=== PATIENT | female | born 1950 | race Caucasian/White ===

== ENCOUNTER 2019-09-05 10:46 | Emergency (ER) | payer MEDICARE, BC ==
--- NOTE | 2019-09-05 11:37 | EDM.PDOC ---
ED HPI GENERAL MEDICAL PROBLEM - General Chief Complaint: Lower Extremity Injury/Pain Stated Complaint: RT LEG PAIN Time Seen by Provider: 09/05/19 11:03 Source of Information: Reports: Patient, RN Notes Reviewed History Limitations: Reports: No Limitations - History of Present Illness INITIAL COMMENTS - FREE TEXT/NARRATIVE: Patient is a 69-year-old female who presents to the ED for the evaluation of right leg pain status post hip surgery. Patient notes that she had a total right hip revision arthroplasty with some cadaver bones done on 08/21/2019, performed by Dr. Vanegas at [facility] in [place]. She has been doing physical therapy, started on 08/26/2019, she went once the first week, and twice this week. She is noting a pain to her right lateral/anterior thigh/knee, that really only bothers her at night, she states this is when the pain gets very bad. Patient does take her tramadol and Tylenol as needed, and tries to elevate her legs as much as possible. Patient is quite concerned about a blood clot at this time, she states that she only takes 2 tablets of 81 mg aspirin daily. She is not having any calf pain, and her leg does not demonstrate any other sort of redness or swelling. She is noting just the pain. The patient's incision is healing well, with no obvious signs of infection noted. She is not having any numbness or tingling distal to the pain, or in her toes. She notes that she is walking okay but cannot put more than 50 pounds weight on that leg. She denies any slips trips or near falls that have happened, or any other trauma after the surgery. She notes she has been very careful in her movements. Right Leg Pain Score (Numeric/FACES): 8 - Related Data Allergies Allergy/AdvReac Type Severity Reaction Status Date / Time niacin Allergy Rash Verified 09/05/19 11:25 nickel Allergy Rash Verified 09/05/19 11:25 oxycodone Allergy Hyperactivi Verified 09/05/19 11:25 ty Sulfa (Sulfonamide Allergy Nausea and Verified 09/05/19 11:25 Antibiotics) Vomiting Home Meds: Home Meds Acetaminophen [Tylenol Extra Strength] 500 mg PO DAILY PRN 09/05/19 [History] Aspirin [Ecotrin EC] 162 mg PO DAILY 09/05/19 [History] Meloxicam 7.5 mg PO DAILY 09/05/19 [History] atorvaSTATin [Lipitor] 20 mg PO DAILY 09/05/19 [History] traMADol [Ultram] 50 mg PO PRN 09/05/19 [History] Past Medical History HEENT History: Reports: Impaired Vision Other HEENT History: glasses Cardiovascular History: Reports: High Cholesterol - Past Surgical History GI Surgical History: Reports: Appendectomy Female Surgical History: Reports: Hysterectomy Musculoskeletal Surgical History: Reports: Hip Replacement Other Musculoskeletal Surgeries/Procedures:: ruptured disc on neck surgery, Bilateral hip replacement. Social & Family History - Tobacco Use Smoking Status *Q: Never Smoker - Caffeine Use Caffeine Use: Reports: Coffee - Recreational Drug Use Recreational Drug Use: No Review of Systems - Review of Systems Review Of Systems: See Below Constitutional: Denies: Chills, Fever Respiratory: Denies: Shortness of Breath, Cough Cardiovascular: Denies: Chest Pain Skin: Reports: Wound (Well-healing surgical wound to the right lateral hip). Denies: Erythema Neurological: Denies: Numbness, Tingling ED EXAM, GENERAL - Physical Exam Exam: See Below Exam Limited By: No Limitations General Appearance: Alert, WD/WN, No Apparent Distress Eye Exam: Bilateral Eye: EOMI, Normal Inspection, PERRL Ears: Normal External Exam Nose: Normal Inspection Throat/Mouth: Normal Inspection Head: Atraumatic, Normocephalic Neck: Normal Inspection Respiratory/Chest: No Respiratory Distress, Lungs Clear, Normal Breath Sounds, No Accessory Muscle Use, Chest Non-Tender Cardiovascular: Normal Peripheral Pulses, Regular Rate, Rhythm, No Edema, No Murmur Peripheral Pulses: 3+: Radial (L), Radial (R), Dorsalis Pedis (L), Dorsalis Pedis (R) GI/Abdominal: Normal Bowel Sounds, Soft, Non-Tender, No Distention, No Mass Extremities: Normal Inspection, Normal Capillary Refill, Leg Pain (Right anterior/lateral thigh, with movement but not on palpation), Limited Range of Motion (of right leg, Straight leg raise is positive at about 30). No: Joint Swelling, Increased Warmth, Pallor, Redness Neurological: Alert, Oriented, Normal Cognition, No Motor/Sensory Deficits Psychiatric: Normal Affect, Normal Mood Skin Exam: Warm, Dry, Intact, Normal Color, No Rash, Wound/Incision (Well- healing surgical wound to the right lateral hip. No signs of infection noted.) Course - Vital Signs Last Recorded V/S: Last Vital Signs Temp 98.7 F 09/05/19 11:03 Pulse 65 09/05/19 11:03 Resp 16 09/05/19 11:03 BP 133/62 09/05/19 11:03 Pulse Ox 96 09/05/19 11:03 - Orders/Labs/Meds Orders: Active Orders 24 hr Category Date Time Status VL Duplex Lwr Ext Veins Ltd Rt [US] Stat Exams 09/05/19 11:13 Ordered - Re-Assessments/Exams Free Text/Narrative Re-Assessment/Exam: 09/05/19 11:38 Patient presents to the ED for evaluation of her ongoing right leg pain. Have ordered ultrasound to rule out the possibility of a blood clot, it is likely that she is suffering from more of a muscle spasm type pain in nature, and we will try Norflex with her if the ultrasound is negative. 09/05/19 12:34 technical support director states that the patient is negative for DVT on the right leg. At this time I will prescribe some Norflex and see if this does not help, and likely send her home with a prescription for this. I will discharge her after I get the official radiology read stating as such. Departure - Departure Time of Disposition: 12:35 Disposition: Home, Self-Care 01 Condition: Fair Clinical Impression: Muscle strain of right lower extremity Qualifiers: Encounter type: initial encounter Qualified Code(s): S86.911A - Strain of unspecified muscle(s) and tendon(s) at lower leg level, right leg, initial encounter - Discharge Information *PRESCRIPTION DRUG MONITORING PROGRAM REVIEWED*: No *COPY OF PRESCRIPTION DRUG MONITORING REPORT IN PATIENT AMAN: No Instructions: Muscle Strain, [id number] Referrals: Aimee Naik MD [Primary Care Provider] - Forms: ED Department Discharge Additional Instructions: You have been evaluated in the ED for your right leg pain. Your ultrasound demonstrated no sign of a DVT in your right leg. Please use ice as tolerated to the affected area. Please try to elevate the affected area to relieve swelling. Please use your previous prescriptions as previously prescribed. You were given a prescription for Norflex, for suspected muscle strain of your right lower leg. Take 1 tab every 12 hours for muscle spasms/pain. This medication can cause increased sedation when taken with the stronger pain medications, please be wary of this, recommend you do not drive while taking these medications. If this medication makes you too sleepy, you may take this at night only for further relief. Recommend that you follow-up with your orthopedic doctor or regular provider, sometime this week to make sure your symptoms are improving as suspected. Please return to ED if your symptoms should change or worsen. Sepsis Event Note - Evaluation Sepsis Screening Result: No Definite Risk - Focused Exam Vital Signs: Vital Signs Temp Pulse Resp BP Pulse Ox 09/05/19 11:03 98.7 F 65 16 133/62 96 Date Exam was Performed: 09/05/19 Time Exam was Performed: 12:34 - My Orders Last 24 Hours: My Active Orders 09/05/19 11:13 VL Duplex Lwr Ext Veins Ltd Rt [US] Stat - Assessment/Plan Last 24 Hours: My Active Orders 09/05/19 11:13 VL Duplex Lwr Ext Veins Ltd Rt [US] Stat
[2019-09-05] MEDS ORDERED: Orphenadrine 100 MG Tab.ER PO ONE (12:34)
--- NOTE | 2019-09-05 12:54 | US ---
Right lower extremity deep venous ultrasound: Duplex and color Doppler evaluation was performed of the right common femoral, proximal greater saphenous, superficial femoral, popliteal and posterior tibial veins. Left common femoral vein was also evaluated. Comparison: No prior venous imaging is available. Findings: Posterior tibial and peroneal veins are not optimally seen for phasic flow but show normal compression and augmentation. Other veins show normal phasic flow, augmentation and compression. Additional real-time images were obtained of the popliteal fossa on the right side which appear without cyst or solid abnormality. Impression: 1. No evidence of deep venous thrombosis within the right lower extremity or within the left common femoral vein. Diagnostic code #1 Study was dictated in [place] Standard Time
== END 2019-09-05 13:12 | disposition home or self-care (01) ==
LOC: JD.ED 10:46
DX: S86.911A Strain of unspecified muscle(s) and tendon(s) at lower leg level, right leg, initial encounter (principal); E78.00 Pure hypercholesterolemia, unspecified; Z88.5 Allergy status to narcotic agent; Z88.8 Allergy status to other drugs, medicaments and biological substances; Z91.09 Other allergy status, other than to drugs and biological substances; Z88.2 Allergy status to sulfonamides; Z79.899 Other long term (current) drug therapy; Z79.82 Long term (current) use of aspirin; X58.XXXA Exposure to other specified factors, initial encounter
CPT/HCPCS: 93971; 99283; A9270

== ENCOUNTER 2021-08-14 16:59 | Emergency (ER) | payer MEDICARE, BC ==
[2021-08-14] MEDS ORDERED: Sodium Chloride 0.9% 10 ML Syringe FLUSH PRN (19:28)
== END 2021-08-14 21:30 | disposition home or self-care (01) ==
LOC: JD.ED 16:59
DX: K64.9 Unspecified hemorrhoids (principal); E78.00 Pure hypercholesterolemia, unspecified; Z79.899 Other long term (current) drug therapy; Z88.2 Allergy status to sulfonamides; Z88.8 Allergy status to other drugs, medicaments and biological substances
CPT/HCPCS: 36415; 81001; 85025; 99283

== ENCOUNTER 2021-09-13 07:10 | Day surgery (SDC) | payer MEDICARE, BC ==
[~2021-09-13 07:10] MED LIST: Lactated Ringers 1,000 ML IV SCH; Lidocaine 1%/Sod Bicarbonate in NS 8.4% 1 ML Syringe IDERM PRN; Sodium Chloride 0.9% 10 ML Syringe FLUSH PRN; Sodium Chloride 0.9% 10 ML Syringe FLUSH SCH
[2021-09-13] MEDS ORDERED: Bupivacaine 0.5% 10 ML SDV ONE ×2 (07:27→09:30)
[2021-09-13] MEDS ORDERED: fentaNYL 100 MCG/2 ML SDV ONE (07:46)
[2021-09-13] MEDS ORDERED: Lidocaine 1% 4 ML ONE (07:47)
[2021-09-13] MEDS ORDERED: Midazolam 1 MG/ML 2 ML SDV ONE (07:47)
[2021-09-13] MEDS ORDERED: Propofol 200 MG/20 ML SDV ONE ×3 (07:47→09:29)
[2021-09-13] MEDS ORDERED: Lidocaine 1% 2 ML ONE (07:50)
[2021-09-13] MEDS ORDERED: Ondansetron 4 MG/2 ML SDV ONE (08:48)
[2021-09-13] MEDS ORDERED: Lactated Ringers 500 ML ONE (09:08)
== END 2021-09-13 11:08 | disposition home or self-care (01) ==
LOC: JD.SDS 07:10
PROVIDERS: ATTEND Surgery
DX: D12.3 Benign neoplasm of transverse colon (principal); K62.1 Rectal polyp; K57.31 Diverticulosis of large intestine without perforation or abscess with bleeding; K64.8 Other hemorrhoids; E78.00 Pure hypercholesterolemia, unspecified; Z98.890 Other specified postprocedural states; Z79.899 Other long term (current) drug therapy; Z88.8 Allergy status to other drugs, medicaments and biological substances; Z88.5 Allergy status to narcotic agent; Z88.2 Allergy status to sulfonamides
CPT/HCPCS: 45380; 45385; 46221; J2250; J2405; J2704; J3010; J3490; J7120; 00811; 88305; 99100

== ENCOUNTER 2021-10-22 09:46 | Emergency (ER) | payer MEDICARE, BC ==
[2021-10-22] MEDS ORDERED: Aspirin 81 MG Tab.Chew PO ONE (10:13)
[2021-10-22] MEDS ORDERED: Nitroglycerin 0.4 MG Tab.SL SL PRN (10:13)
[2021-10-22] MEDS ORDERED: Famotidine 20 MG/2 ML SDV IVPUSH ONE (10:24)
[2021-10-22] MEDS ORDERED: Aspirin 81 MG Tab.Chew ONE (10:33)
[2021-10-22] MEDS: Sodium Chloride 0.9% 10 ML Syringe FLUSH PRN ×2 (10:37→11:58)
[2021-10-22] MEDS ORDERED: Iopamidol 755 Mg/ML 100 ML Bottle IVPUSH ONE (11:36)
== END 2021-10-22 13:00 | disposition home or self-care (01) ==
LOC: JD.ED 09:46
DX: R07.89 Other chest pain (principal); R91.1 Solitary pulmonary nodule; G95.9 Disease of spinal cord, unspecified; E78.00 Pure hypercholesterolemia, unspecified; Z88.1 Allergy status to other antibiotic agents; Z88.5 Allergy status to narcotic agent; Z88.2 Allergy status to sulfonamides; Z79.899 Other long term (current) drug therapy
CPT/HCPCS: 36415; 71045; 71275; 80053; 83735; 84484; 85025; 85379; 85610; 93005; 96374; 99285; A9270; J3490; Q9967; 93010

== ENCOUNTER 2021-11-08 10:23 | Day surgery (SDC) | payer MEDICARE, BC ==
[~2021-11-08 10:23] MED LIST changes: +Bupivacaine 0.5%/EPINEPHrine 1:200,000 50 ML MDV ONE; +Lidocaine 1% with EPINEPHrine 1:100,000 20 ML MDV ONE
[2021-11-08] MEDS ORDERED: Acetaminophen 325 MG Tab PO ONE (10:29)
[2021-11-08] MEDS ORDERED: Gabapentin 300 MG Cap PO ONE (10:30)
[2021-11-08] MEDS ORDERED: metroNIDAZOLE/Normal Saline 500 MG in Premix Bag 1 BAG IV ONE ×2 (10:30→11:30)
[2021-11-08] MEDS ORDERED: Lidocaine 1% 5 ML VIAL ONE (12:49)
[2021-11-08] MEDS ORDERED: Propofol 200 MG/20 ML SDV ONE (12:49)
[2021-11-08] MEDS ORDERED: Rocuronium 50 MG/5 ML Vial ONE (12:49)
[2021-11-08] MEDS ORDERED: Succinylcholine/Sod PF 100 MG/5 ML SYRINGE IV ONE (12:49)
[2021-11-08] MEDS ORDERED: fentaNYL 100 MCG/2 ML SDV ONE ×2 (12:49→13:40)
[2021-11-08] MEDS ORDERED: Midazolam 1 MG/ML 2 ML SDV ONE (12:49)
[2021-11-08] MEDS ORDERED: ceFAZolin 1 GM Vial ONE (12:56)
[2021-11-08] MEDS ORDERED: ePHEDrine 50 MG/ML SDV ONE (13:30)
[2021-11-08] MEDS ORDERED: Dexamethasone 4 MG/ML 5 ML MDV ONE (13:31)
[2021-11-08] MEDS ORDERED: Ondansetron 4 MG/2 ML SDV ONE (13:31)
[2021-11-08] MEDS ORDERED: fentaNYL 100 MCG/2 ML SDV IVPUSH PRN (14:17)
[2021-11-08] MEDS ORDERED: HYDROmorphone 0.5 MG/0.5 ML Syringe IVPUSH PRN (14:17)
[2021-11-08] MEDS ORDERED: Ondansetron 4 MG/2 ML SDV IVPUSH PRN (14:17)
== END 2021-11-08 16:30 ==
LOC: JD.MS 10:23 → JD.SDS 10:23 → UNDOADMIN 10:23 → EDSTATUS 13:15 → UNDODISIN 16:30 → JD.SDS 16:30
PROVIDERS: ATTEND Surgery
DX: D12.0 Benign neoplasm of cecum (principal); K66.0 Peritoneal adhesions (postprocedural) (postinfection); K38.8 Other specified diseases of appendix; K21.9 Gastro-esophageal reflux disease without esophagitis; F41.9 Anxiety disorder, unspecified; H54.7 Unspecified visual loss; E78.00 Pure hypercholesterolemia, unspecified; E66.9 Obesity, unspecified; Z96.641 Presence of right artificial hip joint; Z88.2 Allergy status to sulfonamides; Z98.890 Other specified postprocedural states; Z88.5 Allergy status to narcotic agent; Z91.09 Other allergy status, other than to drugs and biological substances; Z90.49 Acquired absence of other specified parts of digestive tract; Z68.31 Body mass index [BMI] 31.0-31.9, adult
CPT/HCPCS: 44205; 88307; A9270; J0330; J0690; J1100; J2250; J2370; J2405; J2704; J2710; J3010; J3490; J7120; 00790; 99100

== ENCOUNTER → 2022-03-28 | Day surgery (SDC) | payer MEDICARE, BC ==
[~2022-03-28] MED LIST changes: +Bupivacaine 0.5% 30 ML SDV ONE; -Bupivacaine 0.5%/EPINEPHrine 1:200,000 50 ML MDV ONE; +Lidocaine 1% 2 ML ONE; -Lidocaine 1% with EPINEPHrine 1:100,000 20 ML MDV ONE; +Midazolam 1 MG/ML 2 ML SDV ONE; +Ondansetron 4 MG/2 ML SDV IVPUSH PRN; +Ondansetron 4 MG/2 ML SDV ONE; +Propofol 200 MG/20 ML SDV ONE; +fentaNYL 100 MCG/2 ML SDV ONE
== END | disposition home or self-care (01) ==
LOC: JD.SDS 08:11
PROVIDERS: ATTEND Surgery
DX: Z12.11 Encounter for screening for malignant neoplasm of colon (principal); K63.5 Polyp of colon; K57.30 Diverticulosis of large intestine without perforation or abscess without bleeding; K64.8 Other hemorrhoids; E78.00 Pure hypercholesterolemia, unspecified; Z79.899 Other long term (current) drug therapy; Z79.82 Long term (current) use of aspirin; Z88.2 Allergy status to sulfonamides; Z88.8 Allergy status to other drugs, medicaments and biological substances; Z86.010 Personal history of colon polyps; Z87.891 Personal history of nicotine dependence
CPT/HCPCS: 45380; 46221; J2250; J2405; J2704; J3010; J3490; J7120

== ENCOUNTER 2023-04-10 12:28 | Emergency (ER) | payer MEDICARE, BC ==
[2023-04-10] MEDS ORDERED: Gabapentin 100 MG Cap PO ONE (13:33)
== END 2023-04-10 16:35 | disposition home or self-care (01) ==
LOC: JD.ED 12:28
DX: B02.29 Other postherpetic nervous system involvement (principal); P29.11 Neonatal tachycardia; E78.00 Pure hypercholesterolemia, unspecified; E66.9 Obesity, unspecified; Z79.82 Long term (current) use of aspirin; Z79.899 Other long term (current) drug therapy; Z88.2 Allergy status to sulfonamides; Z88.5 Allergy status to narcotic agent; Z91.048 Other nonmedicinal substance allergy status
CPT/HCPCS: 36415; 84484; 93005; 93246; 99283; A9270; 93010

== ENCOUNTER 2024-01-27 09:17 | Day surgery (SDC) | payer MEDICARE, BC ==
[~2024-01-27 09:17] MED LIST changes: -Bupivacaine 0.5% 30 ML SDV ONE; +EPINEPHrine 1 MG/ML SDV ONE; -Lactated Ringers 1,000 ML IV SCH; +Lactated Ringers 1,000 ML ONE; -Lidocaine 1% 2 ML ONE; -Lidocaine 1%/Sod Bicarbonate in NS 8.4% 1 ML Syringe IDERM PRN; -Ondansetron 4 MG/2 ML SDV IVPUSH PRN; -Ondansetron 4 MG/2 ML SDV ONE; +Ropivacaine 0.5% 5 MG/ML 30 ML SDV ONE; +ceFAZolin 2 GM Vial ONE; -fentaNYL 100 MCG/2 ML SDV ONE
[2024-01-27] MEDS: Lactated Ringers 1,000 ML IV SCH (09:50)
[2024-01-27] MEDS ORDERED: Lidocaine 1% 4 ML ONE (11:27)
[2024-01-27] MEDS ORDERED: Dexamethasone 4 MG/ML 5 ML MDV ONE (12:09)
[2024-01-27] MEDS ORDERED: Phenylephrine 1% 10 MG/ML SDV ONE (12:09)
[2024-01-27] MEDS ORDERED: Ondansetron 4 MG/2 ML SDV ONE (12:09)
[2024-01-27] MEDS ORDERED: Ondansetron 4 MG/2 ML SDV IVPUSH PRN (12:16)
[2024-01-27] MEDS ORDERED: HYDROmorphone 0.5 MG/0.5 ML Syringe IVPUSH PRN (12:16)
[2024-01-27] MEDS ORDERED: fentaNYL 100 MCG/2 ML SDV IVPUSH PRN (12:16)
[2024-01-27] MEDS: Morphine 8 MG, EPINEPHrine 0.3 MG, Cefuroxime 750 MG, Ketorolac 30 MG, Sodium Chloride ... PRN (12:20)
[2024-01-27] MEDS: Vancomycin 1 GM SDV ONE (12:27)
[2024-01-27] MEDS: Tranexamic Acid 1,000 MG/10 ML Vial ONE (12:27)
[2024-01-27] MEDS ORDERED: Lidocaine 1% 2 ML ONE (12:29)
[2024-01-27] MEDS: Acetaminophen/HYDROcodone 325-5 MG Tab PO PRN (14:49)
== END 2024-01-27 17:30 | disposition home or self-care (01) ==
LOC: JD.SDS 09:17
PROVIDERS: ATTEND Orthopaedic Surgery
DX: M17.12 Unilateral primary osteoarthritis, left knee (principal); E78.00 Pure hypercholesterolemia, unspecified; I47.10 Supraventricular tachycardia, unspecified; Z79.899 Other long term (current) drug therapy; Z88.2 Allergy status to sulfonamides; Z88.5 Allergy status to narcotic agent
CPT/HCPCS: 0055T; 27447; 64447; 73560; 97110; 97161; A9270; C1713; C1776; J0171; J0690; J0697; J1100; J1885; J2250; J2270; J2371; J2405; J2704; J2795; J3370; J7120; 01402; 64417; 99100; J3490

== ENCOUNTER 2025-04-01 14:08 | Day surgery (SDC) | payer MEDICARE, BC ==
[2025-04-01] MEDS: Pilocarpine 4% Ophth Soln 15 ML Bot EYELF SCH (07:34)
[2025-04-01] MEDS: Tetracaine HCl/PF 0.5% 4 ML Bottle EYEBOTH SCH (07:34)
[2025-04-01] MEDS: Cefuroxime 10 MG/ML SYRINGE EYELF SCH (07:34)
[2025-04-01] MEDS: Lidocaine 1% PF 2 ML SDV INJECT SCH (07:34)
[2025-04-01] MEDS: Polymyxin B/Trimethoprim 10 ML Bottle EYELF SCH (07:35)
[2025-04-01] MEDS: Tropicamide 1% Ophth Soln 3 ML Bottle EYELF SCH (15:21)
== END 2025-04-01 17:05 ==
LOC: JD.SDS 14:08
PROVIDERS: ATTEND Ophthalmology
DX: H25.813 Combined forms of age-related cataract, bilateral (principal); H40.033 Anatomical narrow angle, bilateral; H40.053 Ocular hypertension, bilateral; H01.02A Squamous blepharitis right eye, upper and lower eyelids; H01.02B Squamous blepharitis left eye, upper and lower eyelids; H35.373 Puckering of macula, bilateral; H11.823 Conjunctivochalasis, bilateral; Z88.5 Allergy status to narcotic agent; Z88.2 Allergy status to sulfonamides; Z79.899 Other long term (current) drug therapy
CPT/HCPCS: 66984; A9270; J0697; J3490

== ENCOUNTER 2025-05-06 12:06 | Day surgery (SDC) | payer MEDICARE, BC ==
[2025-05-06] MEDS: Lidocaine 1% PF 2 ML SDV INJECT SCH (07:35)
[2025-05-06] MEDS: Tetracaine HCl/PF 0.5% 4 ML Bottle EYEBOTH SCH (07:35)
[2025-05-06] MEDS: Polymyxin B/Trimethoprim 10 ML Bottle EYERT SCH (07:36)
[2025-05-06] MEDS: Cefuroxime 10 MG/ML SYRINGE EYERT SCH (07:36)
[2025-05-06] MEDS: Pilocarpine 4% Ophth Soln 15 ML Bot EYERT SCH (07:36)
[2025-05-06] MEDS: Tropicamide 1% Ophth Soln 3 ML Bottle EYERT SCH (12:30)
[2025-05-06] MEDS: Ofloxacin 0.3% Ophth Soln 5 ML Bottle EYERT SCH (13:55)
== END 2025-05-06 14:08 | disposition home or self-care (01) ==
LOC: JD.SDS 12:06
PROVIDERS: ATTEND Ophthalmology
DX: H25.811 Combined forms of age-related cataract, right eye (principal); H52.31 Anisometropia; H40.031 Anatomical narrow angle, right eye; H40.053 Ocular hypertension, bilateral; H11.823 Conjunctivochalasis, bilateral; H02.886 Meibomian gland dysfunction of left eye, unspecified eyelid; H02.883 Meibomian gland dysfunction of right eye, unspecified eyelid; H01.02B Squamous blepharitis left eye, upper and lower eyelids; H01.02A Squamous blepharitis right eye, upper and lower eyelids; H43.813 Vitreous degeneration, bilateral; H18.413 Arcus senilis, bilateral; H02.834 Dermatochalasis of left upper eyelid; H02.831 Dermatochalasis of right upper eyelid; Z96.1 Presence of intraocular lens; Z88.2 Allergy status to sulfonamides; Z88.5 Allergy status to narcotic agent; Z79.899 Other long term (current) drug therapy
CPT/HCPCS: A9270-GY; J0697; J3490